=== PATIENT | female | born 1960 | race American Indian/Alaskan Native ===

== ENCOUNTER → 2018-03-18 11:17 | Outpatient (CLI) | payer MEDICAID, OTHER, SELFPAY ==
--- NOTE | 2018-03-18 | DI.RAD.S_ITS ---
PROCEDURE: XR HUMERUS RT 2V INDICATIONS: RIGHT ARM PAIN TECHNIQUE: 2 views of the humerus were acquired. COMPARISON: None. FINDINGS: Bones: No fractures or dislocations. No suspicious bony lesions. Degenerative a.c. joint disease incidentally noted. Soft tissues: No suspicious soft tissue calcifications. Snap artifacts are present. IMPRESSION: Normal humerus Dictated by: Irvin Downey M.D. on 03/18/2018 at 12:19 Approved by: Irvin Downey M.D. on 03/18/2018 at 12:20
--- NOTE | 2018-03-18 | DI.RAD.S_ITS ---
PROCEDURE: XR SHOULDER RT MIN 2V INDICATIONS: RIGHT ARM PAIN TECHNIQUE: 3 views of the shoulder were acquired. COMPARISON: [facility], , SHOULDER MINIMUM 2VIEW RIGHT, 11/02/2013, 14:53. FINDINGS: Bones: No fractures or dislocations. No suspicious bony lesions. Degenerative a.c. joint disease again noted. Visualized ribs appear intact. Soft tissues: No suspicious soft tissue calcifications. IMPRESSION: Degenerative acromioclavicular joint disease Dictated by: Irvin Downey M.D. on 03/18/2018 at 12:22 Approved by: Irvin Downey M.D. on 03/18/2018 at 12:23
== END ==
PROVIDERS: Visit Provider Physician Assistant
DX: M25.511 Pain in right shoulder (principal); M19.011 Primary osteoarthritis, right shoulder
CPT/HCPCS: 73030; 73060

== ENCOUNTER → 2018-04-30 08:12 | Outpatient (CLI) | payer MEDICAID, OTHER, SELFPAY ==
--- NOTE | 2018-04-30 | DI.MRI.S_ITS ---
PROCEDURE: MR SHOULDER RT WO CON INDICATIONS: Right shoulder pain TECHNIQUE: Noncontrast oblique coronal T2 fast spin echo with fat saturation, oblique sagittal T1 spin echo and T2 fast spin echo with fat saturation, axial T1 spin echo and T2 fast spin echo with fat saturation through the shoulder. COMPARISON: None. FINDINGS: Image quality: Excellent. Rotator cuff: There is tendinosis involving distal supraspinatus and infraspinatus with low-grade bursal surface partial-thickness tear involving distal supraspinatus from its insertion on the humeral head extending to the musculotendinous junction. Tendinosis and low-grade intrasubstance partial-thickness tear involving distal subscapularis is also seen. No full-thickness rotator cuff tendon rupture. Sagittal images demonstrate mild supraspinatus muscle atrophy. Bones and bursae: There is moderate acromioclavicular joint osteoarthritis and glenohumeral joint osteophyte is. No fracture or dislocation is seen. Trace amount of fluid is noted within glenohumeral joint. Small amount of fluid is also noted in subacromial subdeltoid bursa. Capsule and soft tissues: In the absence of intra-articular contrast, the labrum and glenohumeral ligaments appear intact. The long head of the biceps tendon demonstrates normal location and morphology. The rotator interval appears normal, without fibrosis. The coracohumeral ligament is normal in thickness. IMPRESSION: 1. Moderate a.c. joint and glenohumeral joint osteoarthritis. No fracture or dislocation. 2. Distal supraspinatus and infraspinatus tendinosis. Low-grade bursal surface partial-thickness tear involving distal supraspinatus at its insertion on the humeral head to the level of musculotendinous junction. Mild supraspinatus muscle atrophy. Tendinosis and low-grade intrasubstance partial-thickness tear involving distal subscapularis. 3. No evidence of focal labral tear. Dictated by: Jw Baird M.D. on 04/30/2018 at 16:01 Approved by: Jw Baird M.D. on 04/30/2018 at 16:20
== END ==
PROVIDERS: PCP Family Medicine; Visit Provider Family Medicine
DX: M25.511 Pain in right shoulder (principal); M19.011 Primary osteoarthritis, right shoulder; M75.111 Incomplete rotator cuff tear or rupture of right shoulder, not specified as traumatic
CPT/HCPCS: 73221

== ENCOUNTER 2019-01-14 13:40 | Day surgery (SDC) | payer MEDICAID, OTHER, SELFPAY ==
[2018-12-31 14:06] VITALS: BMI 28.5
[2019-01-14] VITALS (9 sets, daily range): BP systolic 108–141; BP diastolic 75–96; PULSE 79–120; RESP 10–15; TEMP 36.3–36.4; O2SAT 92–100; BMI 28.5
[2019-01-14] MEDS: LACTATED RINGERS 1,000 ML 42 ML IV ×2 (14:05→15:42)
[2019-01-14] MEDS: INSULIN REGULAR 100 UNIT/ML 3 ML VIAL SUBCUT (14:37)
--- NOTE | 2019-01-14 14:57 | PM.PREOP ---
Pre-operative Note Interval Note History & Physical reviewed/Exam performed by Physician: Yes Changes to H&P: No
[2019-01-14] MEDS: CEFAZOLIN 2 GM/100 ML FROZ.PIGGY IV (15:00)
--- NOTE | 2019-01-14 15:04 | SUR.PREOP ---
Block start time [1430] . Medicated by Dr. Castellanos. Monitoring initiated and maintained throughout procedure. Oxygen and medications given per anesthesiologist instructions. Patient remained stable throughout procedure, no adverse reactions noted. Block end time [].
--- NOTE | 2019-01-14 15:09 | SUR.PREOP ---
Block start time [1430] . Premedicated by Dr. Castellanos with Versed and Fentanyl IV. Monitoring initiated and maintained throughout procedure. Oxygen given per anesthesiologist instructions. Danitza Gordon RN assisted with nerve stimulator during procedure. Patient remained stable throughout procedure, no adverse reactions noted. Block end time [1437].
--- NOTE | 2019-01-14 15:24 | SUR.OPER ---
Lateral on padded OR bed with flores bag positioner, head on pillow, gel axillary roll in place, bottom leg bent with gel pad under knee to foot, upper leg straight and supported with pillows. Operative arm secured in shoulder positioning suspension device. non-operative arm secured on padded arm board. Safety belt at hip, tape over blanket securing lower legs.
[2019-01-14] MEDS: ROPIVACAINE 0.5% PF 5 MG/ML 20ML VIAL 10 ML INJ (15:41)
[2019-01-14] MEDS: SODIUM CHLORIDE IRRIG SOLUTION 3,000 ML, EPINEPHrine 1 MG IRR (15:45)
--- NOTE | 2019-01-14 15:57 | PM.OP.1 ---
Operative Date/Time/Diagnoses Date of procedure: 01/14/19 Time of procedure: 15:58 Pre-op diagnosis: Impingement syndrome/bursitis right shoulder Post-op diagnosis: same Procedure & Clinicians Procedure: Arthroscopic subacromial decompression right shoulder Same procedure as scheduled: Yes Indications: The patient presents today for right shoulder arthroscopy after failure of conservative treatment. The nature of the procedure including the risks and benefits, alternatives, postoperative course and expected outcome were discussed and all questions answered. Consent was obtained. Operative site confirmed and marked. Surgeon: Kai Sim Pinion And Wheel Truer: Yadiel Kitchen Anesthesia Type: General, Peripheral nerve block and Local Operative Notes Findings: Examination under anesthesia was unremarkable. Arthroscopic evaluation of the glenohumeral joint revealed no evidence of any significant rotator cuff tearing. The labrum was intact and stable. The biceps tendon was also intact with no tearing visible. There was minimal chondromalacia of the glenohumeral joint. Arthroscopic evaluation of the subacromial space revealed some inflamed bursal tissue. There was a small but prominent spur on the anterior acromion. A complete bursectomy and standard anterior lateral acromioplasty was performed. The subacromial space was well decompressed at the end the procedure. The rotator cuff was fully evaluated and there was no evidence of any significant tearing. Closure Type: primary Specimen(s): none sent Blood products transfused: none Procedure in detail: The patient was taken the operative suite and placed under general anesthesia with a scalene block and given prophylactic antibodies prior to surgery. The patient was then positioned in the lateral decubitus position on a beanbag and with an axillary roll. The arm was suspended with 10 pounds of weight. The acromion and coracoid as well as the expected portal sites were all marked. The shoulder was then injected with 20 mL of 1% lidocaine with epinephrine. The arm was then prepped and draped in usual sterile fashion. The joint was then filled with 20 mL of saline through the proposed posterior portal site. The posterior portal was then established and the scope placed bluntly into the glenohumeral joint. The glenohumeral joint was then inspected (see findings above). The scope was then switched to the subacromial space. A standard bursectomy and anterior/lateral chondroplasty was performed with a shaver and bur. The subacromial space was well decompressed. (See findings above). The arthroscopy was then completed and the shoulder drained. The portal sites were closed with interrupted 3-0 nylon suture. Subacromial space was filled with 20 mL of 0.5% ropivacaine and 4 of morphine. Sterile gauze dressings were then applied. The shoulder was placed into a sling. The patient tolerated the procedure well and was returned recovery room in good condition. Complications: none Condition: stable Disposition: same day surgery Plan for aftercare: Sling for comfort. Patient will be discharged to home. May start physical therapy within 1 week. Clinic follow-up in 2 weeks.
--- NOTE | 2019-01-14 16:21 | SUR.PHASEI ---
Dr Heck and Dr. kunz have checked on patient; Dr. kunz spoke to her about the sling, exercise, and PT. Pt was coughing on arrival; ice chips have ease the coughing - tolerating well w/o nausea, also denies pain. Sling on right arm, pillow under arm.
--- NOTE | 2019-01-14 16:38 | SUR.PHASEI ---
Dr. Heck checked on patient; coughing subsided except for occasional non-productive cough. Tolerating PO well. Glasses and upper denture retuend to patient.
--- NOTE | 2019-01-14 17:13 | SUR.PHASEII ---
1706 Continues to deny pain or nausea, tolerating sips and chips well. CMS stable, asslsted with dressing, sling to RUE. Discussed supporting the RUE w/pillow and stool softeners to help avoid constipation R/T opiod use. Patient states that she feels well. To car in by RN. Stable, oriented, pleasant.
== END 2019-01-14 17:06 | disposition home or self-care (01) ==
PROVIDERS: PCP Family Medicine; Visit Provider Orthopaedic Surgery
PROC: (CPT 29805; principal; 2019-01-14 15:45)
DX: M75.41 Impingement syndrome of right shoulder (principal); G89.18 Other acute postprocedural pain; I10 Essential (primary) hypertension; F17.210 Nicotine dependence, cigarettes, uncomplicated; E11.9 Type 2 diabetes mellitus without complications; Z79.4 Long term (current) use of insulin
CPT/HCPCS: 29822; 29826; 64415; J0171; J0330; J0690; J2250; J2405; J2704; J3010